=== PATIENT | male | born 1955 | race Caucasian/White ===

== ENCOUNTER 2018-01-07 12:35 | Emergency (ER) | payer OTHER ==
[~2018-01-07] VITALS: Ht 170.2 cm; Wt 83.9 kg
[2018-01-07 13:03] VITALS: Ht 170.2 cm; Wt 83.9 kg
[2018-01-07 15:17] VITALS: BP 142/80
== END 2018-01-07 15:17 | disposition home or self-care (01) ==
LOC: ED 12:35
DX: S42.251A Displaced fracture of greater tuberosity of right humerus, initial encounter for closed fracture (principal); W18.30XA Fall on same level, unspecified, initial encounter; Y93.89 Activity, other specified; Y92.89 Other specified places as the place of occurrence of the external cause; Y99.8 Other external cause status
CPT/HCPCS: J2250; J2310; J3010; J3490; J7040; Q0092